=== PATIENT | female | born 1985 | race Caucasian/White ===

== ENCOUNTER → 2019-05-10 | Outpatient (CLI) | payer OTHER ==
[~2019-05-10] MED LIST: ALBU8HFA2 INH; BUSP10 PO; Bactrim Ds Tab1 EACH PO; CARB200ER PO; CEPH500 PO; CIPR500 PO; CYCL10 PO; Camila0.35 MG PO; DOCU100 PO; Desyrel50 MG PO; FIORICET 50-301 EACH PO; HYOS.125 SL; IBUP600 PO; IBUP800 PO; METCAR500 PO; MULVITMIND PO; MULVITMINE PO; NAPR500 PO; NAPR500ERA PO; Norco 5-325 Ta1 EACH PO; OXYACE5T PO; PRENATAL ONE T1 EACH PO; PROM25 PO; QUET200 PO; SIME80CH PO; SULTRIDS PO; TRAM50 PO; VERA120 PO; Verotin-Gr Cap1 EACH PO; Zofran Odt4 MG SL; [UNRECOGNIZED DRUG - REMARK]
[2019-05-10 18:25] LABS: BASOPHILS ABSOLUTE AUTO 0.01 K/mm3 (0.00-0.23); BASOPHILS PERCENT AUTO 0 % (0-2); EOSINOPHILS ABSOLUTE AUTO 0.17 K/mm3 (0.00-0.68); EOSINOPHILS PERCENT AUTO 3 % (0-6); Hemoglobin 12.7 g/dL (11.5-16.0); IMMATURE GRAN ABSOLUTE AUTO 0.01 K/mm3 (0.00-0.10); IMMATURE GRAN PERCENT AUTO 0 % (0-1); LYMPHOCYTES ABSOLUTE AUTO 2.77 K/mm3 (0.84-5.20); LYMPHOCYTES PERCENT AUTO 44 % (21-46); MONOCYTES ABSOLUTE AUTO 0.58 K/mm3 (0.16-1.47); MONOCYTES PERCENT AUTO 9 % (4-13); Mean Corpuscular HGB 29.5 pg (26.0-34.0); Mean Corpuscular HGB Conc 32.6 g/dL (31.5-36.5); Mean Corpuscular Volume 91 fL (80-100); Mean Platelet Volume 9.7 fL (9.1-12.4); NEUTROPHILS ABSOLUTE AUTO 2.76 K/mm3 (1.96-9.15); NEUTROPHILS PERCENT AUTO 44 % (41-73); Platelet Count 304 K/mm3 (150-400); RDW Coefficient Variation 12.8 % (11.7-14.2); RDW Standard Deviation 42.3 fL (35.1-46.3); Red Blood Cell Count 4.31 M/mm3 (3.80-5.20)
[2019-05-10 18:47] LABS: Free Thyroxine 1.31 ng/dL (0.70-1.60)
[2019-05-10 19:03] LABS: Alanine Aminotransfer (ALT/SGP 25 U/L (12-78); Albumin, Blood 3.7 g/dL (3.4-5.0); Albumin/Globulin Ratio 1.1 (0.8-1.8); Alk Phos 87 U/L (50-136); Anion Gap 4 mmol/L (6-16); Aspartate Aminotrans (AST/SGOT 16 U/L (12-37); Bilirubin, Total 0.5 mg/dL (0.1-1.0); Blood Urea Nitrogen 16 mg/dL (8-24); Bun/Creatinine Ratio 21.5 (12.0-20.0); CO2, Blood 27 mmol/L (21-32); Calcium, Blood 8.4 mg/dL (8.5-10.1); Chloride, Blood 106 mmol/L (98-108); Creatinine, Blood 0.74 mg/dL (0.40-1.00); Globulin, Blood 3.5 g/dL (2.2-4.0); Glomerular Filtration Rate >60 (60-); Glucose, Blood 116 mg/dL (70-99); Potassium, Blood 3.8 mmol/L (3.5-5.5); Sodium, Blood 137 mmol/L (136-145); Thyroid Stimulating Hormone 0.397 uIU/mL (0.360-4.800); Total Protein, Blood 7.2 g/dL (6.4-8.2)
== END | disposition home or self-care (01) ==
LOC: LAB SHORT 14:45 → LAB 14:45
PROVIDERS: Nurse Practitioner Family
DX: F41.8 Other specified anxiety disorders (principal)
CPT/HCPCS: 80053; 84439; 84443; 85025

== ENCOUNTER 2023-07-11 19:17 | Emergency (ER) | payer OTHER ==
[~2023-07-11] VITALS: Ht 157.5 cm; Wt 47.6 kg
[2023-07-11 19:45] LABS: BASOPHILS ABSOLUTE AUTO 0.02 K/mm3 (0.00-0.23); BASOPHILS PERCENT AUTO 0 % (0-2); EOSINOPHILS ABSOLUTE AUTO 0.13 K/mm3 (0.00-0.68); EOSINOPHILS PERCENT AUTO 1 % (0-6); Hematocrit 41.7 % (33.0-51.0); Hemoglobin 13.7 g/dL (11.5-16.0); IMMATURE GRAN ABSOLUTE AUTO 0.02 K/mm3 (0.00-0.10); IMMATURE GRAN PERCENT AUTO 0 % (0-1); LYMPHOCYTES ABSOLUTE AUTO 1.52 K/mm3 (0.84-5.20); LYMPHOCYTES PERCENT AUTO 16 % (21-46); MONOCYTES ABSOLUTE AUTO 0.61 K/mm3 (0.16-1.47); MONOCYTES PERCENT AUTO 7 % (4-13); Mean Corpuscular HGB 29.1 pg (26.0-34.0); Mean Corpuscular HGB Conc 32.9 g/dL (31.5-36.5); Mean Corpuscular Volume 89 fL (80-100); Mean Platelet Volume 8.9 fL (9.1-12.4); NEUTROPHILS ABSOLUTE AUTO 7.15 K/mm3 (1.96-9.15); NEUTROPHILS PERCENT AUTO 76 % (41-73); Platelet Count 338 K/mm3 (150-400); RDW Coefficient Variation 12.8 % (11.7-14.2); RDW Standard Deviation 41.6 fL (35.1-46.3); Red Blood Cell Count 4.71 M/mm3 (3.80-5.20); White Blood Cell Count 9.45 K/mm3 (4.00-11.30)
[2023-07-11 20:19] LABS: Albumin, Blood 3.7 g/dL (3.4-5.0); Albumin/Globulin Ratio 1.1 (0.8-1.8); Bilirubin, Total 0.4 mg/dL (0.1-1.0); Bun/Creatinine Ratio 20.8 (12.0-20.0); Creatinine, Blood 0.87 mg/dL (0.40-1.00); Globulin, Blood 3.5 g/dL (2.2-4.0); Total Protein, Blood 7.2 g/dL (6.4-8.2)
[2023-07-11 20:24] VITALS: BP 136/97
[2023-07-11] MEDS ORDERED: ONDA4ODT MM (22:38)
== END 2023-07-11 22:47 | disposition home or self-care (01) ==
LOC: ER 19:17
PROVIDERS: Emergency Medicine
DX: S51.812A Laceration without foreign body of left forearm, initial encounter (principal); S01.91XA Laceration without foreign body of unspecified part of head, initial encounter; S81.812A Laceration without foreign body, left lower leg, initial encounter; S81.811A Laceration without foreign body, right lower leg, initial encounter; S41.112A Laceration without foreign body of left upper arm, initial encounter; S70.12XA Contusion of left thigh, initial encounter; M25.562 Pain in left knee; M25.561 Pain in right knee; F17.200 Nicotine dependence, unspecified, uncomplicated; V48.6XXA Car passenger injured in noncollision transport accident in traffic accident, initial encounter; Y92.410 Unspecified street and highway as the place of occurrence of the external cause; Z88.5 Allergy status to narcotic agent; Z88.8 Allergy status to other drugs, medicaments and biological substances; Z79.899 Other long term (current) drug therapy
CPT/HCPCS: 36415; 70450; 71045; 71260; 72125; 72170; 73562-LT; 73562-RT; 74177; 80053; 84702; 85025; 86850; 86900; 86901; 93005; 93010; 96374-59; 96375-59; 99285-25; A9270; J2270; J2405; J3010; Q9967

== ENCOUNTER 2024-05-28 14:30 | Emergency (ER) | payer OTHER ==
[~2024-05-28] VITALS: Ht 157.5 cm; Wt 47.6 kg
[~2024-05-28 14:30] MED LIST changes: +ONDA4ODT MM
[2024-05-28 16:21] LABS: Source, Urine Clean Catch
[2024-05-28 16:24] LABS: Appearance, Urine Hazy (Clear); Bilirubin, Urine Neg (Neg); Blood, Urine 1+ (Neg); Color, Urine Yellow (P-Yellow); Glucose Qualitative, Urine Neg (Neg); Ketones, Urine Neg (Neg); Leukocyte Esterase, Urine 1+ (Neg); Nitrite, Urine Pos (Neg); Protein, Urine 1+ (Neg); Urobilinogen, Urine NORM (Normal)
[2024-05-28 16:31] LABS: Bacteria Many /hpf; Red Blood Cells, Urine 0-2 /hpf (0-2); Squamous Epithelial Cells Few /hpf (Few)
[2024-05-28] MEDS ORDERED: Trimethoprim/Sulfamethoxazole DS Tab PO ONE (16:50)
[2024-05-28] MEDS ORDERED: BACTRIM DS TAB1 EAC1 PO (16:53)
[2024-05-28] MEDS ORDERED: Pyridium100 MG PO (16:53)
[2024-05-28 17:10] VITALS: BP 121/95
== END 2024-05-28 17:20 | disposition home or self-care (01) ==
LOC: ER 14:30
PROVIDERS: Physician Assistant
DX: N39.0 Urinary tract infection, site not specified (principal); G43.909 Migraine, unspecified, not intractable, without status migrainosus; F17.200 Nicotine dependence, unspecified, uncomplicated; Z88.5 Allergy status to narcotic agent; Z88.8 Allergy status to other drugs, medicaments and biological substances
CPT/HCPCS: 81001; 87077; 87086; 87186; 99283; A9270

== ENCOUNTER 2025-08-16 15:21 | Emergency (ER) | payer OTHER ==
[~2025-08-16] VITALS: Ht 157.5 cm; Wt 52.2 kg
[~2025-08-16 15:21] MED LIST changes: +BACTRIM DS TAB1 EAC1 PO; +Pyridium100 MG PO
[2025-08-16 15:44] VITALS: BP 110/74
== END 2025-08-16 17:19 | disposition home or self-care (01) ==
LOC: ER 15:21
DX: S61.412A Laceration without foreign body of left hand, initial encounter (principal); F17.210 Nicotine dependence, cigarettes, uncomplicated; Z23 Encounter for immunization; Z88.2 Allergy status to sulfonamides; Z88.8 Allergy status to other drugs, medicaments and biological substances; Z79.899 Other long term (current) drug therapy; W26.0XXA Contact with knife, initial encounter; Y93.G1 Activity, food preparation and clean up
CPT/HCPCS: 90471; 90715; 99282-25

== ENCOUNTER 2025-08-26 18:19 | Emergency (ER) | payer OTHER ==
[~2025-08-26] VITALS: Ht 157.5 cm; Wt 52.2 kg
[2025-08-26 18:23] VITALS: BP 105/64
== END 2025-08-26 19:13 | disposition home or self-care (01) ==
LOC: ER 18:19
DX: Z76.89 Persons encountering health services in other specified circumstances (principal); Z48.02 Encounter for removal of sutures; F17.210 Nicotine dependence, cigarettes, uncomplicated; Z88.5 Allergy status to narcotic agent; Z79.899 Other long term (current) drug therapy
CPT/HCPCS: 99281; A9270

== ENCOUNTER 2025-08-27 13:44 | Emergency (ER) | payer OTHER ==
[~2025-08-27] VITALS: Ht 157.5 cm; Wt 52.2 kg
[2025-08-27 13:55] VITALS: BP 100/90
== END 2025-08-27 14:35 | disposition home or self-care (01) ==
LOC: ER 13:44
DX: Z76.89 Persons encountering health services in other specified circumstances (principal); F17.210 Nicotine dependence, cigarettes, uncomplicated; Z88.5 Allergy status to narcotic agent; Z88.8 Allergy status to other drugs, medicaments and biological substances; Z79.899 Other long term (current) drug therapy
CPT/HCPCS: 99281; A9270

== ENCOUNTER 2025-09-10 14:35 | Emergency (ER) | payer OTHER ==
[~2025-09-10] VITALS: Ht 157.5 cm; Wt 52.2 kg
[2025-09-10 15:01] VITALS: BP 110/87
== END 2025-09-10 15:43 | disposition home or self-care (01) ==
LOC: ER 14:35
DX: Z76.89 Persons encountering health services in other specified circumstances (principal); F17.210 Nicotine dependence, cigarettes, uncomplicated; Z88.5 Allergy status to narcotic agent; Z88.8 Allergy status to other drugs, medicaments and biological substances; Z79.899 Other long term (current) drug therapy
CPT/HCPCS: 99281; A9270